=== PATIENT | female | born 1990 | race Caucasian/White ===

== ENCOUNTER 2019-01-24 13:56 | Emergency (ER) | payer OTHER ==
[2019-01-24 16:15] LABS: #Eosinphils 0.3 thou/uL (0.0-0.7); #Lymphocytes 2.1 thou/uL (1.20-3.40); #Monocytes 0.5 thou/uL (0.11-0.59); #Neutrophils 6.9 thou/uL (1.40-6.50); %Basophils 0.5 % (0.0-1.0); %Eosinophils 3.3 % (0.0-10.0); %Lymphocytes 21.6 % (21.0-51.0); %Neutrophils 69.7 % (42.0-75.0); Hemoglobin 10.6 g/dL (12.0-16.0); Mean Corpuscular HGB CONC 35.1 g/dL (32.0-36.0); Mean Corpuscular Hemoglobin 31.1 pg (27.0-31.0); Mean Corpuscular Volume 88.7 fL (78.0-98.0); Mean Platelet Volume 7.8 fL (7.4-10.4); Platelet Count 193 thou/uL (130-400); RBC Distribution Width 12.4 % (11.5-14.5); Red Blood Cell (RBC) Count 3.42 mill/uL (4.20-5.40); White Blood Cell (WBC) Count 9.9 thou/uL (4.8-10.8)
[2019-01-24 16:25] LABS: Bilirubin Negative (Negative); Blood, Urine Negative (Negative); Clarity Clear (Clear); Glucose, Urine (Dipstick) Normal (Negative); Leukocyte Negative Leu/uL (Negative); Nitrite Negative (Negative); Protein, Urine (Dipstick) Negative (Neg-Trace); Urobilinogen Normal mg/dL (Less than 2)
[2019-01-24 16:35] LABS: ALT (SGPT) 7 U/L (8-55); AST (SGOT) 11 U/L (5-34); Albumin 3.7 g/dL (3.5-5.0); Alkaline Phosphatase 35 U/L (40-110); Anion Gap 12 mmol/L (10-20); BUN (Urea Nitrogen) 12 mg/dL (7.0-18.7); Calc. Creatinine Clearance 0 mL/min (70-130); Calcium 8.6 mg/dL (7.8-10.44); Carbon Dioxide 22 mmol/L (22-29); Chloride 106 mmol/L (98-107); Estimated GFR-MDRD Greater than 90; Globulin 2.6 g/dL (2.4-3.5); Glucose 84 mg/dL (70-105); Potassium 3.8 mmol/L (3.5-5.1); Protein, Total 6.3 g/dL (6.0-8.3); Sodium 136 mmol/L (136-145)
--- NOTE | 2019-01-24 16:46 | ULT ---
[facility] History: Right lower quadrant pain. Comparison: None. Findings: Real-time grayscale, color, and spectral analysis of the gravid uterus was performed. The placenta is posterior. Adequate amniotic fluid. Average ultrasound age is 19 week 1 day with estimated date of delivery June 19, 2019. The estimated f etal weight is 11 ounces, 86 percentile. The position is breech. Biometry: Biparietal diameter: 4.47 cm, 19 week 4 day Head circumference: 16.19 cm, 19 weeks 0 day Abdominal circumference: 15.13 cm, 20 week 2 day Femur length: 2.89 cm, 18 weeks 6 day heart rate documented at 145 bpm. Impression: Normal single viable intrauterine .
[2019-01-24] MEDS ORDERED: Acetaminophen 500 MG TAB ONE (17:42)
== END 2019-01-24 17:45 | disposition home or self-care (01) ==
LOC: ERS 13:56
DX: O99.89 Other specified diseases and conditions complicating pregnancy, childbirth and the puerperium (principal); R10.9 Unspecified abdominal pain; Z3A.19 19 weeks gestation of pregnancy
CPT/HCPCS: 36415; 76815; 80053; 81003; 85025; 87086

== ENCOUNTER 2019-02-02 14:27 | Outpatient (CLI) | payer OTHER ==
--- NOTE | 2019-02-02 15:24 | ULT ---
ULTRASOUND OBSTETRICAL COMPLETE: DATE: 02/02/2019 HISTORY: 28-year-old female. ICD-10: "Z 34.02, encounter for supervision of normal first , second [facility]. Complete anatomy, size, and dates; and cervical length." FINDINGS: number: [place] lie: Cephalic Maternal cervix: 3.5 cm. Closed.. Placenta: Posterior and low-lying. Uncertain whether inferior edge covers the internal cervical os or not. Amniotic fluid volume: PAXTON = 8.5 cm heart rate: 152 bpm The following anatomy is visualized, with no evidence of anomalies: Head, cerebellum, lateral ventricles, four-chamber heart, stomach, kidneys, cord insertion, bladder, cervical spine, thoracic spine, lumbar spine, sacrum, nose and lips, upper extremities, lower extremities, and three-vessel cord. biometry: Biparietal diameter (BPD): 4.9 cm 20 w 6 d Head circumference (HC): 18.2 cm 20 w 5 d Abdominal circumference (AC): 14.8 cm 20 w 1 d Femur length (FL): 3.3 cm 20 w 2 d Average ultrasound age (AUA): 20 w 4 d Estimated date of delivery (KATE): 06/18/2019 Estimated weight (EFW): 340 g +/- 50 g IMPRESSION: 1) Live 2nd trimester intrauterine gestation. 2) Estimated gestational age of 20 weeks, 4 days 3) cephalic lie. 4) no anatomic abnormality identified. 5) low-lying placenta versus placenta previa. Recommend follow-up.
== END 2019-02-02 14:28 | disposition home or self-care (01) ==
LOC: BICULT 14:27
PROVIDERS: ATTEND Family Medicine
DX: Z34.02 Encounter for supervision of normal first pregnancy, second trimester (principal); Z3A.20 20 weeks gestation of pregnancy
CPT/HCPCS: 76805

== ENCOUNTER 2019-06-21 00:03 | Inpatient (IN) | payer BC, OTHER ==
[2019-06-21 00:36] VITALS: BMI 25.4
[2019-06-21] MEDS ORDERED: hydrALAZINE 20 MG/ML VIAL SLOW IVP PRN ×3 (00:51→05:55)
--- NOTE | 2019-06-21 00:55 | PDOC.LDHP ---
Labor and Delivery H&P HPI: Patient of Dr Prince Time: 54 Location: Triage 28 yo G1 at 40 weeks 1 day with CTX. No VB, no LOF. Denies issues. Review of Systems: complete ROS performed and as per HPI Current gestational age (weeks): 40 (1 day) Dating criteria: last menstrual period Grav: 1 Current complications: none Abnormal US findings: No Current medications: pre- vitamins Previous surgical history: none Allergies/Adverse Reactions: Allergies Allergy/AdvReac Type Severity Reaction Status Date / Time No Known Allergies Allergy Verified 06/21/19 00:33 - Physical Exam Vital signs reviewed and normal: yes (130/80 67 97.8 98.0) General: NAD Heart: RRR Lungs: CTAB Abdomen: gravid Extremeties: no edema FHT: category 1 [place] contractions every: every 1-2 minutes - Vaginal Exam cm dilated: 1 Effacement: 75% Station: -2 - Assessment Latent labor at full term. Check in 3 hrs. I highly suspect she will stay due to CTX frequency and EGA. - Plan Plan: observation in L&D (Pain meds prn. Monitors. Check GBS status)
[2019-06-21] MEDS ORDERED: Butorphanol Tartrate 1 MG/ML VIAL IM SCH (01:00)
--- NOTE | 2019-06-21 05:35 | PDOC.EVN ---
Event Note - Event Note Event Note: After 5 hrs obs, BPs same and strip reactive. Still 1cm. Has IOL scheduled. WE will offer DC home with follow up today vs continued obs here.
[2019-06-21] MEDS ORDERED: Bisacodyl 10 MG SUPP PR PRN (05:55)
[2019-06-21] MEDS ORDERED: Lanolin Ointment 7 GM TUBE TOP PRN (05:55)
[2019-06-21] MEDS ORDERED: Promethazine HCl 25 MG/ML VIAL IM PRN ×2 (05:55→16:23)
[2019-06-21] MEDS ORDERED: Milk Of Magnesia 30 ML UDCUP PO PRN (05:55)
[2019-06-21] MEDS ORDERED: Butorphanol Tartrate 1 MG/ML VIAL SLOW IVP PRN (05:55)
[2019-06-21] MEDS ORDERED: Acetaminophen/Codeine 30-300mg Tablet PO PRN ×2 (05:55)
[2019-06-21] MEDS ORDERED: Ondansetron PF 4 MG/2 ML Vial IVP PRN ×2 (05:55→16:23)
--- NOTE | 2019-06-21 05:55 | PDOC.EVN ---
Event Note - Event Note Event Note: I have seen the patient at bedside. She prefers to stay due to CTX and EGA. I called Dr Hawk, ok to stay now. Will admit.
[2019-06-21] MEDS ORDERED: Lactated Ringer's 1,000 ML IV SCH (06:00)
[2019-06-21 07:08] LABS: Hemoglobin 11.7 g/dL (12.0-16.0); Mean Corpuscular HGB CONC 34.9 g/dL (32.0-36.0); Mean Corpuscular Hemoglobin 32.1 pg (27.0-31.0); Mean Platelet Volume 8.5 fL (7.4-10.4); Platelet Count 158 thou/uL (130-400); Red Blood Cell (RBC) Count 3.64 mill/uL (4.20-5.40); White Blood Cell (WBC) Count 12.6 thou/uL (4.8-10.8)
[2019-06-21] MEDS: Misoprostol 100 MCG TAB VAG SCH ×2 (07:32→10:32)
[2019-06-21 07:42] LABS: Syphilis Antibody Nonreactive (Nonreactive); Syphilis Antibody Index 0.03 S/CO (<1.00 Non-Reactive)
[2019-06-21 07:54] LABS: HBSAg Index 0.19 S/CO (0-0.99); HIV (1/2) Antibody/Antigen Non-Reactive (NonReactive); HIV 1/2 INDEX 0.15 S/CO (<1.00); Hep B Surf Ag Non-Reactive S/CO (NonReactive); Hep C IgG Ab Non-Reactive (NonReactive); Hep C Index 0.11 S/CO (0-0.79)
[2019-06-21] MEDS ORDERED: Ferrous Sulfate 325 MG TAB PO SCH (08:00)
[2019-06-21] MEDS ORDERED: Docusate Calcium (SURFAK) 240 MG CAP PO SCH (09:00)
[2019-06-21] MEDS ORDERED: Prenatal Vitamin 1 TAB PO SCH (09:00)
[2019-06-21] MEDS ORDERED: Adacel (T-DAP) 0.5 ML SYRINGE IM ONE (09:00)
[2019-06-21] MEDS ORDERED: Measles/Mumps/Rubella 10 MCG/0.5 ML VIAL SC ONE (09:00)
[2019-06-21] MEDS ORDERED: NS w/ Oxytocin 10 units 500 ML ONE (15:15)
[2019-06-21] MEDS ORDERED: Fentanyl 4 mcg/Bup 0.1% Cadd 100 ML ONE (15:51)
[2019-06-21] MEDS ORDERED: Bupivacaine 0.5% 10 ML VIAL ONE (15:52)
[2019-06-21] MEDS ORDERED: Fentanyl 100 MCG/2 ML VIAL ONE (15:52)
[2019-06-21] MEDS ORDERED: Naloxone HCl 0.4 mg/ml Vial IVP PRN ×2 (16:23)
[2019-06-21] MEDS ORDERED: Fentanyl 100 MCG/2 ML VIAL I-THECAL ONE (16:23)
[2019-06-21] MEDS ORDERED: Bupivacaine 0.25% 10 ML VIAL EPIDURAL ONE (16:23)
[2019-06-21] MEDS ORDERED: Lactated Ringer's 500 ML IV PRN (16:23)
[2019-06-21] MEDS ORDERED: EPHEDRINE 25 MG/5 ML SYRINGE SLOW IVP PRN (16:23)
[2019-06-21] MEDS ORDERED: diphenhydrAMINE 50 MG/ML VIAL IVP PRN (16:23)
[2019-06-21] MEDS ORDERED: Communication Order-Pharmacy FS SCH (16:30)
[2019-06-21] MEDS ORDERED: Fentanyl 4 mcg/Bupivacaine 0.1% Cassette 100 ML EPIDURAL SCH (16:30)
[2019-06-21] MEDS ORDERED: NS / Oxytocin 40 units/1000ml 0 ML ONE (21:02)
[2019-06-21] MEDS ORDERED: Lidocaine 1% (PF) 30 ML VIAL ONE (21:02)
[2019-06-21] MEDS: NS / Oxytocin 40 units/1000ml 1,000 ML IV SCH ×2 (21:57→23:10)
[2019-06-21] MEDS ORDERED: NS / Oxytocin 40 units/1000ml 1,000 ML ONE (22:29)
[2019-06-21] MEDS ORDERED: Carboprost 250 MCG/ML AMP ONE (22:29)
[2019-06-21] MEDS ORDERED: Misoprostol 200 MCG TAB ONE (22:29)
[2019-06-21] MEDS ORDERED: Methylergonovine 0.2 MG/ML VIAL ONE (22:29)
[2019-06-21] MEDS: Acetaminophen 325 MG TAB PO PRN (23:08)
[2019-06-21] MEDS ORDERED: Tranexamic Acid 1,000 MG/10 ML VIAL ONE ×2 (23:23→23:56)
[2019-06-21] MEDS: Tranexamic Acid 1,000 MG in Sodium Chloride 0.9% 100 ML IVPB SCH (23:35)
[2019-06-22] MEDS: Tranexamic Acid 1,000 MG in Sodium Chloride 0.9% 100 ML IVPB SCH (00:13)
[2019-06-22] MEDS: Ibuprofen 800 MG TAB PO SCH ×5 (00:13→21:25)
[2019-06-22] MEDS ORDERED: Misoprostol 200 MCG TAB PO SCH (02:45)
[2019-06-22] MEDS ORDERED: Milk Of Magnesia 30 ML UDCUP PO PRN (03:28)
[2019-06-22] MEDS ORDERED: Ondansetron PF 4 MG/2 ML Vial IVP PRN (03:28)
[2019-06-22] MEDS ORDERED: Promethazine HCl 25 MG/ML VIAL IM PRN (03:28)
[2019-06-22] MEDS ORDERED: Lanolin Ointment 7 GM TUBE TOP PRN (03:28)
[2019-06-22] MEDS ORDERED: hydrALAZINE 20 MG/ML VIAL SLOW IVP PRN (03:28)
[2019-06-22] MEDS ORDERED: HYDROcodone/Acetaminophen 5/325 mg Tablet PO PRN ×2 (03:28)
[2019-06-22] MEDS ORDERED: Bisacodyl 10 MG SUPP PR PRN (03:28)
[2019-06-22] MEDS ORDERED: diphenhydrAMINE 25 MG CAP PO PRN (03:28)
[2019-06-22] MEDS ORDERED: NS / Oxytocin 40 units/1000ml 1,000 ML IV SCH (03:28)
[2019-06-22] MEDS: Misoprostol 100 MCG TAB VAG SCH (04:33)
[2019-06-22] MEDS ORDERED: Benzocaine-Menthol 82.5 ML CAN TOP PRN (05:17)
[2019-06-22 06:00] LABS: Hemoglobin 9.7 g/dL (12.0-16.0); Mean Corpuscular HGB CONC 34.4 g/dL (32.0-36.0); Mean Corpuscular Hemoglobin 32.2 pg (27.0-31.0); Mean Corpuscular Volume 93.8 fL (78.0-98.0); Mean Platelet Volume 8.7 fL (7.4-10.4); Platelet Count 140 thou/uL (130-400); RBC Distribution Width 12.8 % (11.5-14.5); Red Blood Cell (RBC) Count 3.01 mill/uL (4.20-5.40); White Blood Cell (WBC) Count 12.5 thou/uL (4.8-10.8)
[2019-06-22] MEDS: Prenatal Vitamin 1 TAB PO SCH (08:12)
[2019-06-22] MEDS: Ferrous Sulfate 325 MG TAB PO SCH ×2 (08:12→17:25)
[2019-06-22] MEDS: Docusate Calcium (SURFAK) 240 MG CAP PO SCH ×2 (08:12→21:25)
[2019-06-22] MEDS: Acetaminophen 325 MG TAB PO PRN (17:29)
[2019-06-22 23:20] VITALS: BP 111/69; TEMP 98.3
[2019-06-23] MEDS: Ibuprofen 800 MG TAB PO SCH ×2 (05:08→14:22)
[2019-06-23] MEDS: Docusate Calcium (SURFAK) 240 MG CAP PO SCH (09:25)
[2019-06-23] MEDS: Prenatal Vitamin 1 TAB PO SCH (09:25)
[2019-06-23] MEDS: Ferrous Sulfate 325 MG TAB PO SCH (09:25)
[2019-06-23] MEDS: Acetaminophen 325 MG TAB PO PRN (11:17)
== END 2019-06-23 15:30 | disposition home or self-care (01) | DRG 807 ==
LOC: L&D/OP 00:03 → L&D 05:55 → 3SW 06-22 03:49
PROVIDERS: ADMIT Obstetrics & Gynecology; ATTEND Family Medicine
PROC: 10E0XZZ Delivery of Products of Conception, External Approach (ICD-10-PCS; principal; 2019-06-21)
PROC: 10907ZC Drainage of Amniotic Fluid, Therapeutic from Products of Conception, Via Natural or Artificial Opening (ICD-10-PCS; 2019-06-21)
PROC: 0W8NXZZ Division of Female Perineum, External Approach (ICD-10-PCS; 2019-06-21)
PROC: 3E033VJ Introduction of Other Hormone into Peripheral Vein, Percutaneous Approach (ICD-10-PCS; 2019-06-21)
PROC: 3E0P7VZ Introduction of Hormone into Female Reproductive, Via Natural or Artificial Opening (ICD-10-PCS; 2019-06-21)
DX: O48.0 Post-term pregnancy (principal); Z37.0 Single live birth; Z3A.40 40 weeks gestation of pregnancy; O70.1 Second degree perineal laceration during delivery
CPT/HCPCS: 36415; 51702; 85027; 86780; 86803; 86850; 86900; 86901; 87340; 87389; 99285; J0595; J2001; J2210; J2405; J2590; J3010; J3490